=== PATIENT | female | born 1990 | race Caucasian/White ===

== ENCOUNTER 2019-03-31 06:16 | Inpatient (IN) ==
[2019-03-31] MEDS ORDERED: Lidocaine 1% 20 ML MDV INFILT PRN (06:29)
[2019-03-31] MEDS ORDERED: miSOPROStol 25 MCG TABLET PO PRN (06:29)
[2019-03-31] MEDS ORDERED: Famotidine 20 MG/2 ML VIAL IVP PRN (06:29)
[2019-03-31] MEDS ORDERED: Naloxone 0.4 MG/ML INJ IVP PRN (06:29)
[2019-03-31] MEDS ORDERED: *HR* Nalbuphine 10 MG/ML AMPUL IVP PRN (06:29)
[2019-03-31] MEDS ORDERED: Ondansetron 4 MG/2 ML VIAL IVP PRN (06:29)
[2019-03-31] MEDS ORDERED: Metoclopramide 10 MG/2 ML VIAL IVP PRN (06:29)
[2019-03-31] MEDS ORDERED: Ringers Solution, Lactated 1,000 ML IVC SCH (06:30)
[2019-03-31 07:07] LABS: Basophils # 0.1 K/mcL (0.0-0.2); Basophils % 0.7 %; Eosinophils # 0.1 K/mcL (0.0-0.6); Eosinophils % 1.8 %; Hematocrit 33.3 % (35.3-44.9); Hemoglobin 11.2 g/dL (11.5-15.4); Immature Granulocytes % 0.4 % (0-4); Lymphocytes # 1.9 K/mcL (0.6-4.6); Lymphocytes % 27.5 %; Mean Corpuscular HGB Conc 33.6 g/dL (31.6-35.5); Mean Corpuscular Hemoglobin 32.2 pg (28.0-33.3); Mean Corpuscular Volume 95.7 fL (83.0-100.0); Monocytes # 0.7 K/mcL (0.0-1.3); Monocytes % 10.2 %; Neutrophils # 4.1 K/mcL (1.6-8.9); Platelet Count 174 K/mcL (140-400); Red Blood Count 3.48 M/mcL (3.82-4.97); Red Cell Distribution Width 12.1 % (11.5-14.5); Segmented Neutrophils % 59.4 %; White Blood Count 6.8 K/mcL (4.3-11.1)
--- NOTE | 2019-03-31 07:49 | OB/GYN History & Physical ---
Date of Encounter: 03/31/19 Time of Encounter: 07:47 Assessment and Plan (1) with 39 completed weeks gestation Current visit: Yes Status: Acute 29-year-old 1 para 0 female at 39 and 5 days gestation presents for induction of labor. She is aware of options as well as risks and benefits of induction given that her cervix is favorable she desires to proceed. She is being eminence first dose of Cytotec 50 g by mouth and is melisa every 4 minutes. Plan will be to give epidural for anesthesia and perform amniotomy when able. History of Present Illness Chief complaint: Induction HPI: Ms. Bunch is a 29 year old female 1 para 0 female at 39 weeks 5 days gestation presents for induction of labor. is known concave. On arrival she reports irregular contractions no bleeding or leakage of fluid Past Med Surg Social Fam HX - Past Medical History Source: patient, old records reviewed Medical history: no medical history Psychiatric history: no psych history - Past Surgical History Surgical History: no surgical history - Social History Smoking Status: Never smoker Smokeless Tobacco Status: No Alcohol use: none Drug use: none - Family History Mother Age: 48 Family Member Ethnicity: Non- Living Status: Still Living Hx Family Cardiac Disorders: No Hx Family Respiratory Disorders: No Hx Family Cancer: No Hx Family GI Disorders: No Hx Family Genitourinary Disorders: No Hx Family Endocrine Disorder: Yes (thyroid) Hx Family Musculoskeletal Disorders: No Hx Family Neuromuscular Disorders: No Hx Family Neurologic Disorders: No Hx Family HEENT Disorders: No Hx Family Autoimmune Disorders: No Hx Family Reproductive Disorders: No Hx Family Psychosocial Disorders: No Hx Family Medical Disorders: No Obstetrical History - Pregnancies : 1 Medications and Allergies Allergy/AdvReac Type Severity Reaction Status Date / Time Penicillins Allergy Swelling Verified 03/31/19 06:29 of Lip/Tongue/Throat Exam - Constitutional Constitutional: well developed - HEENT HEENT: EOMI - Neck Neck exam: full ROM - Lungs Respiratory exam: CTAB - Cardiovascular Cardiovascular exam: RRR - Abdomen Abdomen: Present: gravid, non tender - Extremities Extremities exam: full ROM Deep Tendon Reflex Grade: 2+ Normal - Cervix Dilation: 4 Effacement: 90 Station: 0 Results Result Diagrams: 03/31/19 06:30 Abnormal lab results RBC 3.48 M/mcL (3.82-4.97) L 03/31/19 06:30 Hgb 11.2 g/dL (11.5-15.4) L 03/31/19 06:30 Hct 33.3 % (35.3-44.9) L 03/31/19 06:30 All other labs normal. - VTE Reasons for not Prescribing Prophylaxis: Treatment not Indicated - Low risk for VTE
[2019-03-31] MEDS ORDERED: Epidural Premix (fent/bupiv) 110 ML EP SCH (08:00)
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
[2019-03-31] MEDS ORDERED: *HR* FentaNYL (PF) 100 MCG/2 ML VIAL ONE (08:37)
[2019-03-31] MEDS ORDERED: *HR* Phenylephrine 10 MG/ML VIAL ONE (08:37)
[2019-03-31] MEDS ORDERED: Bupivacaine-MPF 0.25% 10 ML VIAL ONE (08:39)
[2019-03-31 09:01] LABS: Amphetamine Screen,Urine Negative ng/mL (Cutoff=1000); Barbiturate Screen,Urine Negative ng/mL (Cutoff=200); Benzodiazepines Screen,Urine Negative ng/mL (Cutoff=200); Cannabinoid Screen,Urine Negative ng/mL (Cutoff = 50); Cocaine Screen,Urine Negative ng/mL (Cutoff= 300); Opiate Screen,Urine Negative ng/mL (Cutoff=300); Phencyclidine Screen,Urine Negative ng/mL (Cutoff=25)
--- NOTE | 2019-03-31 09:21 | Anesthesia Procedures ---
Date of Encounter: 03/31/19 Time of Encounter: 08:43 Procedures: Anesthesia - Epidural/Spinal Patient ID/Chart reviewed: Yes Patient examined: Yes OB Eval: Gestational age: 38 OB Eval: : 1 OB Eval: Hx Para: 0 OB Eval: Dilated at (cm): 4 OB Eval: Contractions: Non-stressed pattern Consent Obtained: Yes Supplemental Oxygen: None/Room Air Site Prep: Aseptic Technique, Sterile prep and drape, 0.5% Chlorhexidine/Alcohol Patient position: upright Local Anesthetic: Lidocaine 1% Amount of Local Anesthetic used: 3 Touhy Needle Gauge: 18 Touhy Needle Depth (cm): 6 Catheter Depth at Skin (cm): 11 Test Dose (1.5% Lido + Epi): Volume given (mls): 3 Test Dose Result: Negative Loading Dose: 0.25% Marcaine (mls): 5 Loading Dose: Fentanyl (mcg): 100 Loading Dose Administered: Thru Catheter Infusion Med: 0.125% Bupivacaine w/ 2 mcg/ml Fentanyl Infusion Rate (mls/hr): [address]: Tegaderm, Tape Interspace Used: L3-L4 Loss of Resistance (SUKUMAR): Yes Blood: No CSF: No Paresthesia: No Procedure: dural puncture technique using 5 inch 25 guage damien needle, no meds given intrathecally. Vitals + FHT's: Vital Signs Time 0843 0900 0905 0910 BP 136/81 145/80 141/64 135/70 Pulse 101 84 85 86 FHTs 130 130 130 130
[2019-03-31] MEDS ORDERED: Oxytocin 20 units/ LR 1000 mL 20 UNIT/1,000 ML BAG IVC ONE ×2 (15:58→21:27)
--- NOTE | 2019-03-31 20:54 | OB/GYN Procedure Note ---
Delivery - Delivery Date: 03/31/19 Provider: Tej Dickerson Intrapartum events: none Delivery induction: misoprostol Delivery monitor: external FHT, external uterine Anesthesia: epidural Quantitated Blood Loss: 100 - (s) A Delivery Date: 03/31/19 Infant Delivery Time: 20:18 Presentation: vertex Position: AIXA Route of delivery: Gender: Male Viability: Viable at 1 minute: 8 at 5 mins: 9 Shoulder Dystocia: not encountered Specimens collected: cord blood Placenta: spontaneous Cord: 3 umbilical vessels - Repair Episiotomy: none Laceration Description: Perineal - 2nd Degree - Complications Delivery complications: none - Disposition Mom disposition: stable in LDR disposition: stable in LDR - Comments Comments: Patient is status post normal spontaneous vaginal delivery of liveborn male infant from left occiput anterior presentation. We did have a second-degree laceration. There was no shoulder dystocia and no nuchal cord. I did repair the second-degree laceration with 3-0 Vicryl under local and epidural anesthesia. Estimated blood loss 10 mL mother and infant recovered in labor and delivery room.
[2019-03-31] MEDS ORDERED: Rho Immune Globulin 1,500 UNIT SYRINGE IM PRN (22:32)
[2019-03-31] MEDS ORDERED: Measles/Mumps/Rubella Vacc 0.5 ML VIAL SQ PRN (22:32)
[2019-03-31] MEDS ORDERED: Oxytocin 20 units/ LR 1000 mL 20 UNIT/1,000 ML BAG IVC SCH (22:32)
[2019-03-31] MEDS: Ibuprofen 600 MG TABLET PO PRN (23:41)
[2019-04-01] MEDS: Acetaminophen 325 MG TABLET PO PRN ×2 (04:12→11:30)
[2019-04-01] MEDS ORDERED: Benzocaine/Menthol 56 GM AEROSOL SPRAY TP PRN (08:17)
[2019-04-01] MEDS: Ibuprofen 600 MG TABLET PO PRN ×3 (08:35→20:13)
[2019-04-01] MEDS ORDERED: Prenatal Vit/FA 1 EACH TABLET PO SCH (09:00)
--- NOTE | 2019-04-01 09:44 | Discharge Summary ---
Date of Encounter: 04/01/19 Time of Encounter: 09:40 - Discharge Diagnosis (1) Normal vaginal delivery Priority: Primary Status: Acute Comments: Pt reports feeling well today. Pain well controlled. Tolerating regular diet. Declines contraception at this time. Safe spacing discussed. Pt desires discharge home this evening if is going well. (2) Mother currently breast-feeding Priority: Secondary Status: Acute Comments: Breastfeed baby on demand, at least every 3 hours. Breast pump at home as needed to encourage supply. - Discharge Medications Prescriptions: New Ibuprofen [Motrin] 600 mg PO Q6HR PRN #30 tablet PRN Reason: Moderate Pain Benzocaine/Menthol [place] [Dermoplast [place]] 1 appl TP QID PRN aerosol PRN Reason: See Comments Docusate [Colace] 100 mg PO BID #30 capsule Home Medications: Benzocaine/Menthol [place] [Dermoplast [place]] 1 appl TP QID PRN aerosol 04/01/19 [Rx] Docusate [Colace] 100 mg PO BID #30 capsule 04/01/19 [Rx] Ibuprofen [Motrin] 600 mg PO Q6HR PRN #30 tablet 04/01/19 [Rx] Allergies/Adverse Reactions: Allergy/AdvReac Type Severity Reaction Status Date / Time Penicillins Allergy Swelling Verified 03/31/19 06:29 of Lip/Tongue/Throat Data Procedures and tests throughout hospitalization: Laboratory Tests 03/31/19 03/31/19 06:30 06:30 WBC 6.8 RBC 3.48 L Hgb 11.2 L Hct 33.3 L MCV 95.7 MCH 32.2 MCHC 33.6 RDW 12.1 Plt Count 174 MPV 12.0 Immature Gran % 0.4 Seg Neutrophils % 59.4 Lymphocytes % 27.5 Monocytes % 10.2 Eosinophils % 1.8 Basophils % 0.7 Neutrophils # 4.1 Lymphocytes # 1.9 Monocytes # 0.7 Eosinophils # 0.1 Basophils # 0.1 Urine Opiates Screen Negative Ur Buprenorphine Scrn Negative Ur Barbiturates Screen Negative Ur Phencyclidine Scrn Negative Ur Amphetamines Screen Negative U Benzodiazepines Scrn Negative Urine Cocaine Screen Negative U Marijuana (THC) Screen Negative Ur Drug Screen Interp See Below Date of admission: 03/31/19 06:16 Primary care physician: PCP NONE Consults: 03/31/19 22:32 Consult to Building Stonecutter [CONS] Routine Comment: Vaginal delivery, consult needed Discharging clinician: Hermelinda Lema Anticipated date of discharge: 04/01/19 - Patient Status Disposition: Home, Self-Care Condition: Good Functional capacity at discharge: independent ambulation Overall status at discharge: patient is progressing back to baseline - Discharge Instructions Follow Up With: NONE,PCP [Primary Care Provider] - Tej Dickerson MD [Partnered Physician] - - Diet and Activity Activity: increase activity as tolerated Diet: regular diet Hospital Course Procedures: Delivery Date: 03/31/19 Provider: Tej Dickerson Intrapartum events: none Delivery induction: misoprostol Delivery monitor: external FHT, external uterine Anesthesia: epidural Quantitated Blood Loss: 100 - Infant (s) Infant A Delivery Date: 03/31/19 Delivery Time: 20:18 Presentation: vertex Position: AIXA Route of delivery: Gender: Male Viability: Viable at 1 minute: 8 at 5 mins: 9 Shoulder Dystocia: not encountered Specimens collected: cord blood Placenta: spontaneous Cord: 3 umbilical vessels - Repair Episiotomy: none Laceration Description: Perineal - 2nd Degree - Complications Delivery complications: none - Disposition Mom disposition: discharge to home [place] disposition: discharge home with mother Reason for admission: induction of labor Delivery: Episiotomy: none Laceration: 2nd degree Other procedures: none complications: none Discharge diagnosis: IUP at term delivered baby: male Hospital course: - Delivery Date: 03/31/19 Provider: Tej Dickerson Intrapartum events: none Delivery induction: misoprostol Delivery monitor: external FHT, external uterine Anesthesia: epidural Quantitated Blood Loss: 100 - (s) Infant A Delivery Date: 03/31/19 Infant Delivery Time: 20:18 Presentation: vertex Position: AIXA Route of delivery: Gender: Male Viability: Viable at 1 minute: 8 at 5 mins: 9 Shoulder Dystocia: not encountered Specimens collected: cord blood Placenta: spontaneous Cord: 3 umbilical vessels - Repair Episiotomy: none Laceration Description: Perineal - 2nd Degree - Complications Delivery complications: none - Disposition Mom disposition: home PPD1 disposition: home wtih mother, Time Attestation: Total time spent providing and/or coordinating discharge services: Time Spent: Less than 30 minutes Exam - Constitutional Vitals: Temp Pulse Resp BP Pulse Ox 97.9 F 94 20 103/51 98 04/01/19 07:57 04/01/19 07:57 04/01/19 07:57 04/01/19 07:57 04/01/19 07:57 General appearance IM: A&O X 3, no acute distress, answers questions appropriately Exam: 29 y/o female PP day #1. Reports decreasing amount of lochia rubra without clots. Pain managed with Motrin & Dermoplast spray. Tolerating regular diet without nausea. Ambulating without difficulty. Denies nipple soreness. Reports good mood. Anticipate discharge today. - Respiratory Respiratory exam: Present: CTAB - Cardiovascular Cardiovascular exam IM: Present: RRR - GI/Abdominal GI/Abdominal exam IM: soft - External exam: swelling (moderate swelling of labia majora) Uterine Tone: Firm Uterus Position: 2 Fingers Below Umbilicus, Midline - Extremities Exam Extremities exam IM: Present: normal inspection - Neurological Exam Neurological exam: normal gait, oriented X3 - Psychiatric Additional comments: reports good mood
[2019-04-01 09:49] LABS: Basophils % 0.2 %; Eosinophils # 0.1 K/mcL (0.0-0.6); Eosinophils % 0.5 %; Hematocrit 28.4 % (35.3-44.9); Immature Granulocytes % 0.3 % (0-4); Lymphocytes # 1.6 K/mcL (0.6-4.6); Lymphocytes % 13.4 %; Mean Corpuscular HGB Conc 33.5 g/dL (31.6-35.5); Mean Corpuscular Volume 95.6 fL (83.0-100.0); Monocytes % 8.1 %; Neutrophils # 9.3 K/mcL (1.6-8.9); Platelet Count 137 K/mcL (140-400); Red Blood Count 2.97 M/mcL (3.82-4.97); Red Cell Distribution Width 12.3 % (11.5-14.5); Segmented Neutrophils % 77.5 %
[2019-04-01 09:51] LABS: Hemoglobin 9.5 g/dL (11.5-15.4)
[2019-04-01 17:17] VITALS: BP 119/75
== END 2019-04-01 22:35 | disposition home or self-care (01) | DRG 560 ==
LOC: 1NENULAB 06:16 → 1NENUOBS 22:29
PROVIDERS: ADMIT Obstetrics & Gynecology; ATTEND Obstetrics & Gynecology